=== PATIENT | male | born 1960 | race Caucasian/White ===

== ENCOUNTER 2020-01-18 14:07 | Emergency (ER) | payer OTHER ==
[~2020-01-18] VITALS: Ht 177.8 cm; Wt 111.0 kg
[~2020-01-18 14:07] MED LIST: AMOX250C17; METR500T
[2020-01-18] MEDS ORDERED: DIPH,PERTUSS(ACELL),TET VAC/PF 0.5 ML IM-VACC ONE ×2 (14:30→15:39)
[2020-01-18] MEDS ORDERED: NEOSPORIN OINT. PKT 1 PACKET ONE (14:54)
--- NOTE | 2020-01-18 15:01 | NUR ---
PT A&OX4, RESP EVEN & UNLABORED, SPEECH CLEAR. ABRASION TO SCALP AT ANTERIOR HAIRLINE, LEFT OF MIDLINE. STATES HE TRIPPED ON CORD AT HOME, FELL, HITTING HEAD ON THE WALL. DENIES LOC, N/V. PT UNSURE OF LAST TD BOOSTER.
[2020-01-18] MEDS ORDERED: PRESERVISION (15:04)
[2020-01-18 15:48] VITALS: BP 153/78
== END 2020-01-18 16:03 | disposition home or self-care (01) ==
LOC: ED 14:36
DX: S00.01XA Abrasion of scalp, initial encounter (principal); S09.90XA Unspecified injury of head, initial encounter; I10 Essential (primary) hypertension; Z87.891 Personal history of nicotine dependence; W19.XXXA Unspecified fall, initial encounter; Y93.89 Activity, other specified; Y92.098 Other place in other non-institutional residence as the place of occurrence of the external cause; Y99.8 Other external cause status
CPT/HCPCS: 70450; 90471; 90715; 99284